=== PATIENT | male | born 1975 | race Caucasian/White ===

== ENCOUNTER 2019-11-25 16:06 | Emergency (ER) | payer BC, SELFPAY ==
[~2019-11-25] VITALS: Ht 175.3 cm; Wt 92.5 kg
[2019-11-25 18:00] VITALS: Ht 175.3 cm; Wt 92.5 kg
[2019-11-25 18:11] VITALS: BP 131/93
== END 2019-11-25 18:27 | disposition home or self-care (01) ==
LOC: ED 16:06
DX: B34.9 Viral infection, unspecified (principal); R19.7 Diarrhea, unspecified; Z20.828 Contact with and (suspected) exposure to other viral communicable diseases
CPT/HCPCS: U0003-CS